=== PATIENT | female | born 1995 | race American Indian/Alaskan Native ===

== ENCOUNTER 2020-01-20 18:43 | Emergency (ER) | payer MEDICAID ==
--- NOTE | 2020-01-20 18:58 | Emergency Department Report ---
Blank Doc - Documentation Documentation: 24-year-old female that is 11 weeks presents with hematuria. Denies any vaginal bleeding or flank pain. Denies any abdominal pain or pelvic pain. This initial assessment/diagnostic orders/clinical plan/treatment(s) is/are subject to change based on patient's health status, clinical progression and re- assessment by fellow clinical providers in the ED. Further treatment and workup at subsequent clinical providers discretion. Patient/guardians urged not to elope from the ED as their condition may be serious if not clinically assessed and managed. Initial orders include: 1- Patient sent to [facility] for further evaluation and treatment 2- UA
[2020-01-20 19:01] VITALS: BP 125/80
[2020-01-20 19:34] LABS: Bacteria,Urine 1+ /HPF (Negative); Bilirubin,Urine NEG (Negative); Blood,Urine LG (Negative); Color,Urine Red (Yellow); Mucus,Urine FEW /HPF
[2020-01-20] MEDS ORDERED: LIDOCAINE-MPF (1%) 10 MG/1 ML VIAL 5 ML INFILTRATI ONE (20:36)
[2020-01-20 20:57] LABS: Basophils % (Auto) 0.7 % (0.0-1.8); Eosinophils % (Auto) 0.5 % (0.0-4.3); Hematocrit 36.6 % (30.3-42.9); Hemoglobin 11.8 gm/dl (10.1-14.3); Lymphocytes % (Auto) 24.1 % (13.4-35.0); Mean Corpuscular HGB Conc 32 % (30-34); Mean Corpuscular Volume 92 fl (79-97); Monocytes # (Auto) 0.4 K/mm3 (0.0-0.8); Monocytes % (Auto) 8.8 % (0.0-7.3); Platelet Count 213 K/mm3 (140-440); Red Blood Count 3.97 M/mm3 (3.65-5.03); Red Cell Distribution Width 16.9 % (13.2-15.2)
[2020-01-20] MEDS ORDERED: WATER FOR INJ Sterile (PF) 10 ML ONE (20:59)
[2020-01-20 21:08] LABS: Alanine Aminotransferase 16 units/L (7-56); Albumin 3.7 g/dL (3.9-5); Blood Urea Nitrogen 6 mg/dL (7-17); Calcium 9.1 mg/dL (8.4-10.2); Hemolysis Index 14
[2020-01-20 21:11] LABS: BUN/Creatinine Ratio 10
--- NOTE | 2020-01-20 22:14 | Ultrasound Report ---
ULTRASOUND OBSTETRIC INDICATION / CLINICAL INFORMATION: Vaginal bleeding. Clinical Gestational Age (GA): 11.2 weeks.days TECHNIQUE: Transabdominal. COMPARISON: None available. FINDINGS: GESTATIONAL SAC: Well-defined oval shape and intrauterine in location. YOLK SAC: No significant abnormality. EMBRYO/FETUS: No significant abnormality. - [place]-Rump Length = 4.5 cm = 11.2 weeks.days - Heart Rate, beats per minute (if present) = 172 ADNEXA: No significant abnormality. FREE FLUID: None. ADDITIONAL FINDINGS: None. IMPRESSION: 1. Single, living intrauterine with estimated sonographic age of 11.2 weeks.days. 2. No visualized sonographic abnormality. Signer Name: Alex Husain MD Signed: 01/20/2020 10:10 PM Workstation Name: [id number]
--- NOTE | 2020-01-20 22:27 | Emergency Department Report ---
ED Female HPI - General Chief complaint: Urogenital-Female Stated complaint: BLOOD IN URINE Time Seen by Provider: 01/20/20 18:57 Source: patient Mode of arrival: Ambulatory Limitations: No Limitations - History of Present Illness Initial comments: Patient is a A0 24-year-old -Honduran female who is approximately 11 weeks gestation who has no past medical history and presents to the ED with complaint of acute onset persistent dysuria, urinary frequency and urgency, hematuria, low back pain and diffuse body aches and pains for the last 2 days. Patient denies dizziness, syncope, fever, chills, abdominal pain, vaginal bleeding, chest pain, shortness of breath, cough, sore throat, nausea and vomiting or diarrhea, traumatic injury or heavy lifting. MD Complaint: vaginal bleeding, dysuria, pelvic pain, other (Urinary frequency and urgency) -: Sudden, days(s) (2) Location: suprapubic (pressure), other (vaginal) Radiation: non-radiating Severity: moderate Severity scale (0 -10): 4 Quality: dull Consistency: constant Improves with: none Worsens with: urination Are you Now?: Yes (11 weeks gestation) Associated Symptoms: denies other symptoms, vaginal bleeding, loss of appetite, dysuria, hematuria. denies: vaginal discharge, abdominal pain, nausea/vomiting, fever/chills, headaches, rash, seizure, shortness of breath, syncope, weakness - Related Data Sexually active: Yes : 1 Para: 0 A: 0 Previous Rx's Medication Instructions Recorded Last Taken Type Acetaminophen [Tylenol] 500 mg PO Q6HR PRN #30 tablet 01/20/20 Unknown Rx Promethazine [Phenergan] 25 mg PO Q6HR PRN #24 tab 01/20/20 Unknown Rx cephALEXin [Keflex] 500 mg PO Q6HR #40 capsule 01/20/20 Unknown Rx Allergies Allergy/AdvReac Type Severity Reaction Status Date / Time No Known Allergies Allergy Unverified 01/20/20 19:00 ED Review of Systems ROS: Stated complaint: BLOOD IN URINE Other details as noted in HPI Constitutional: denies: chills, fever Eyes: denies: eye pain, eye discharge, vision change ENT: denies: ear pain, throat pain Respiratory: denies: cough, shortness of breath, wheezing Cardiovascular: denies: chest pain, palpitations Endocrine: no symptoms reported Gastrointestinal: denies: abdominal pain, nausea, diarrhea Genitourinary: urgency, dysuria, frequency, hematuria. denies: discharge Musculoskeletal: back pain, arthralgia, myalgia. denies: joint swelling Skin: denies: rash, lesions Neurological: denies: headache, weakness, paresthesias Psychiatric: denies: anxiety, depression Hematological/Lymphatic: denies: easy bleeding, easy bruising ED Past Medical Hx - Past Medical History Previous Medical History?: No - Surgical History Past Surgical History?: No - Social History Smoking Status: Never Smoker Substance Use Type: None - Medications Home Medications: Home Medications Medication Instructions Recorded Confirmed Last Taken Type Acetaminophen [Tylenol] 500 mg PO Q6HR PRN #30 tablet 01/20/20 Unknown Rx Promethazine [Phenergan] 25 mg PO Q6HR PRN #24 tab 01/20/20 Unknown Rx cephALEXin [Keflex] 500 mg PO Q6HR #40 capsule 01/20/20 Unknown Rx ED Physical Exam - General Limitations: No Limitations General appearance: alert, in no apparent distress - Head Head exam: Present: atraumatic, normocephalic, normal inspection - Eye Eye exam: Present: normal appearance, PERRL, EOMI Pupils: Present: normal accommodation - ENT ENT exam: Present: normal exam, normal orophraynx, mucous membranes moist, TM's normal bilaterally, normal external ear exam - Neck Neck exam: Present: normal inspection, full ROM - Respiratory Respiratory exam: Present: normal lung sounds bilaterally. Absent: respiratory distress, wheezes, rales, rhonchi, chest wall tenderness, accessory muscle use, prolonged expiratory - Cardiovascular Cardiovascular Exam: Present: regular rate, normal rhythm, normal heart sounds. Absent: systolic murmur, diastolic murmur, rubs, gallop - GI/Abdominal GI/Abdominal exam: Present: soft, normal bowel sounds. Absent: distended, tenderness, guarding, hyperactive bowel sounds, hypoactive bowel sounds - Bi-manual exam: Present: other (Pelvic exam declined by patient) - Extremities Exam Extremities exam: Present: normal inspection, full ROM, normal capillary refill - Back Exam Back exam: Present: normal inspection, full ROM. Absent: tenderness, CVA tenderness (R), CVA tenderness (L), paraspinal tenderness - Neurological Exam Neurological exam: Present: alert, oriented X3, CN II-XII intact, normal gait, reflexes normal - Psychiatric Psychiatric exam: Present: normal affect, normal mood - Skin Skin exam: Present: warm, dry, intact, normal color. Absent: rash ED Course Vital Signs 01/20/20 18:56 Temperature 98.2 F Pulse Rate 89 Respiratory 18 Rate Blood Pressure 125/80 O2 Sat by Pulse 99 Oximetry ED Medical Decision Making - Lab Data Result diagrams: 01/20/20 20:40 01/20/20 20:40 - Radiology Data Radiology results: report reviewed, image reviewed Findings [facility] [address] [place] [address] Ultrasound Report Signed Patient: SHARAD JOHNSON MR#: [id number] 328 : 1995 Acct:[id number] Age/Sex: 24 / F ADM Date: 01/20/20 Loc: ED Attending Dr: Ordering Physician: DANIELLE GARCIA Date of Service: 01/20/20 Procedure(s): US OB <= 14 weeks fetus Accession Number(s): [id number] cc: DANIELLE GARCIA ULTRASOUND OBSTETRIC INDICATION / CLINICAL INFORMATION: Vaginal bleeding. Clinical Gestational Age (GA): 11.2 weeks.days TECHNIQUE: Transabdominal. COMPARISON: None available. FINDINGS: GESTATIONAL SAC: Well-defined oval shape and intrauterine in location. YOLK SAC: No significant abnormality. EMBRYO/FETUS: No significant abnormality. - [place]-Rump Length = 4.5 cm = 11.2 weeks.days - Heart Rate, beats per minute (if present) = 172 ADNEXA: No significant abnormality. FREE FLUID: None. ADDITIONAL FINDINGS: None. IMPRESSION: 1. Single, living intrauterine with estimated sonographic age of 11.2 weeks.days. 2. No visualized sonographic abnormality. Signer Name: Brady Husain MD Signed: 01/20/2020 10:10 PM Workstation Name: [id number] Transcribed By: SS Dictated By: BRADY HUSAIN Electronically Authenticated By: BRADY HUSAIN Signed Date/Time: 01/20/202209 DD/ 07 TD/TT: - Medical Decision Making This is a A0 24-year-old -[place] female who is approximately 11 weeks gestation who has no past medical history and presents to the ED with complaint of acute onset persistent dysuria, urinary frequency and urgency, hematuria, low back pain and diffuse body aches and pains for the last 2 days. In the ED, patient is alert and oriented x3 and is not in any distress. Lab test results were reviewed and showed significant urinary tract infection in urinalysis with large leukocyte esterase and >67 WBCs. The rest of the lab test results [place] [id number]. patient was treated in the ED for pain. Transvaginal ultrasound shows a single live intrauterine of approximately 11 weeks and 2 days with a heart rate of 172 bpm. Patient was treated in the ED with Rocephin 1 g and on reevaluation, patient's pain is well controlled with medications. Patient was discharged home on medication including antibiotics and was advised to follow-up with her [employer] physician in 7 to 10 days for evaluation return to the ED immediately if symptoms get worse. - Differential Diagnosis Threatened miscarriage; UTI; kidney stone; ovarian cyst; subchorionic bleed Critical care attestation.: If time is entered above; I have spent that time in minutes in the direct care of this critically ill patient, excluding procedure time. ED Disposition Clinical Impression: Acute cystitis with hematuria, Threatened miscarriage Disposition: DC-01 TO HOME OR SELFCARE Is pt being admited?: No Does the pt Need Aspirin: No Condition: Stable Instructions: Threatened Miscarriage (ED), Urinary Tract Infection in Women (ED) Additional Instructions: The transvaginal ultrasound shows a viable live intrauterine of approximately 11 weeks and 2 days with a heart rate of 172 bpm. Maintain the complete pelvic rest, drink plenty of fluids, take medication as advised with food and follow-up with your [employer] physician in 3 to 5 days for evaluation. Return to the ED immediately if symptoms get worse. Prescriptions: Acetaminophen [Tylenol] 500 mg PO Q6HR PRN #30 tablet PRN Reason: Nausea cephALEXin [Keflex] 500 mg PO Q6HR #40 capsule Promethazine [Phenergan] 25 mg PO Q6HR PRN #24 tab PRN Reason: Nausea Referrals: HARIS العلي MD [Staff Physician] - 3-5 Days Time of Disposition: 22:26 Print Language: SAMI
== END 2020-01-20 22:46 | disposition home or self-care (01) ==
LOC: ED 18:43
DX: O20.0 Threatened abortion (principal); O23.11 Infections of bladder in pregnancy, first trimester; N30.01 Acute cystitis with hematuria; Z3A.11 11 weeks gestation of pregnancy
CPT/HCPCS: 36415; 76801; 80053; 81001; 84702; 85025; 86900; 86901; 87076; 87086; 87186; 96372; 99284; J0696